=== PATIENT | male | born 1960 ===

== ENCOUNTER 2016-08-22 08:00 | Day surgery (SDC) | payer OTHER ==
--- NOTE | 2016-08-21 12:53 | PCM.HPANE ---
Patient Data Surgeon Admitting Provider: Attending Provider:Yosef Christie MD Primary Care Physician:Fany Garcia Other Provider:Juliet Pizarro Anesthesia Reason for Visit Colon Cancer Screening Ht/WT & BMI Body Mass Index Allergies Coded Allergies: No Known Allergies (Unverified , 08/21/16) Past Anesthesia History Anesthesia History: Denies:: Abnormal Airway, Anesthesia Reactions, Difficult Intubation, Fam Anesthesia Reaction, Fam Malignant Hypertherm, Malignant Hyperthermia Medications Discontinued Reported Medications Hydrocortisone Acetate (Anusol-Hc)25 Mg Supp.rect50 Mg RC BID 08/21/16 History History of ENT Problems?: No HEENT History: Denies:: Abnormal Airway Cataracts Difficult Intubation Dysphagia Glaucoma Hearing Problem Sinus Problem TMJ Denture Type: None Teeth Condition: Within Normal Limits Hx of Heart Problems?: No Cardiovascular History: Denies:: AICD Abdominal Aortic Aneurism Atrial Fibrillation Cardiac Surgery Chest Pain Congestive Heart Failure Coronary Artery Disease Edema Heart Murmur Hypertension Irregular Heartbeat Pacemaker Peripheral Vascular Rheumatic Fever Thrombophlebitis Valvular Heart Disease Hx of Respiratory Problem?: No Respiratory History: Denies:: Asthma COPD Chest Surgery Cough Dyspnea Emphysema Hemoptysis Oxygen Administration Pneumonia Pulmonary Embolism Tuberculosis Use of C-PAP Machine Use of Inhalers / NEBS Hx Neurologic Problems?: No Neurological History: Denies:: Alzheimer's Disease CVA Dementia Dizziness Headaches Multiple Sclerosis Parkinson's Disease Peripheral Neuropathy Seizures TIA Hx of GI Problems?: No Gastrointestinal History: Denies:: Cirrhosis Diverticulitis Gall Bladder Disease Gastroesphageal Reflux Gastrointestinal Bleeding Heartburn Hepatitis Hiatal Hernia Liver Disease Rectal Bleeding Hx of Problems?: No HX of Peritoneal Dialysis: No Male Hx: Denies:: Prostate Problems Scrotal Mass Testicular Surgery Skin History: Denies:: History Skin Disorders? Pressure Ulcers Hx Musculoskeletal Problems?: No Musculoskeletal History: Denies:: Back Injury Degenerative Joint Fibromyalgia Joint Replacement Musculoskeletal Trauma Myasthenia Gravis Osteoarthritis Rheumatoid Arthritis Systemic Lupus Hx of Psycho/Social Problems?: No Psycho Social History: Denies:: Anxiety Bipolar Disorder Hx Depression Suicide Attempt Hx Surgeries?: No Hx Any Other Health Problems?: No Other History: Denies:: Cancer Endocrine Disease Hospitalization Thyroid Disease History Blood Transfusions: Denies:: Accept Blood Products? Blood Transfuse Reaction Blood Transfusions Hx Diabetes: No Hx Alcohol Use: No Stop/Bang Risk Assessment Category Category 1A: Patient has history of documented sleep apnea, and HAS NOT received any narcotic, sedative or anesthesia administration during this stay. Category 1B: Patient has history of documented sleep apnea, and HAS received any narcotic , sedative or anesthesia administration during this stay Category 2: Patient has SUSPECTED Obstructive Sleep Apnea, and HAS received any narcotic , sedative or anesthesia administration during this stay. Category 3: Patient has SUSPECTED Obstructive Sleep Apnea and HAS NOT received narcotic, sedative or anesthesia administration during this stay. Category 4: Outpatient in Procedural Areas with known sleep apnea or who screen positive for High Risk via the STOP/BANG questionnaire. Exam Exam General Appearance: Alert, Oriented X3, Cooperative, No Acute Distress HEENT/AIRWAY: MP 2 Lungs: Clear to Auscultation Heart: Exam Unremarkable Plan Impression Patient chart reviewed, patient interviewed and anesthestic plan with risks, benefits, and alternatives discussed, and informed consent obtained. ASA Physical Status: ASA2 Mod Systemic Disease Anesthetic Plan: GA Bene/Risks/Altern/Consents: Yes HP Complete Prior to Induction: Yes Jose Carey MD Aug 21, 2016 12:53
[~2016-08-22] VITALS: Ht 172.7 cm; Wt 79.4 kg
[~2016-08-22 08:00] MED LIST: HYDR25SU31 RC; Lactated Ringer's 1,000 ML IV ONE
[2016-08-22] MEDS ORDERED: fentaNYL-PF 50 mCg/mL 2 mL Inj ONE (08:01)
[2016-08-22 08:17] VITALS: BP 136/95; PULSE 59; RESP 16; O2SAT 97
[2016-08-22] MEDS ORDERED: Ondansetron 2 mg/mL 2 mL Inj IVPUSH PRN (08:40)
[2016-08-22] MEDS ORDERED: Lactated Ringer's 1,000 ML IV SCH (08:40)
[2016-08-22] MEDS ORDERED: MetoCLOpramide 5 mg/mL 2 mL Inj IVPUSH PRN (08:40)
[2016-08-22 08:54] VITALS: BP 92/62; PULSE 55; RESP 16; O2SAT 94
--- NOTE | 2016-08-22 09:01 | ENDO ---
[address] [address] ENDOSCOPY PROCEDURE PATIENT: SHANTI SÁNCHEZ : 1960 MR#: [id number] ADMIT: 08/22/2016 JOB ID: [id number] DATE OF SERVICE: 08/22/2016 OPERATION: Colonoscopy. PREOPERATIVE DIAGNOSIS(ES): Colorectal cancer. POSTOPERATIVE DIAGNOSIS(ES): Mild sigmoid diverticulosis. ANESTHESIA: Monitored anesthesia care. COMPLICATIONS: None. BLOOD LOSS: Minimal. DESCRIPTION OF PROCEDURE: After risks and benefits had been explain to the patient, informed consent was obtained. After anesthesia administered, colonoscope was inserted from the rectum to the cecum. Mucosa was carefully examined. Prep of the patient was excellent. After the procedure done, the scope was withdrawn and procedure terminated. FINDINGS: Upon inspection of the anus no masses, hemorrhoids, ulcers or fissures were seen throughout the entire examination. There was mild sigmoid diverticulosis. No masses or polyps were seen. Retroflexion was normal. IMPRESSION: Mild sigmoid diverticulosis. RECOMMENDATION: 1. High fiber diet. 2. Repeat colonoscopy in 10 years for colorectal cancer screening.
--- NOTE | 2016-08-22 09:03 | PCM.ANEP1 ---
Post Anesthesia PACU Phase 1 Assessment Vital Signs Vital Signs Date Time Temp Pulse Resp B/P Pulse Ox O2 Delivery O2 Flow Rate FiO2 08/22/16 08:54 55 16 92/62 94 Room Air 08/22/16 08:17 59 16 136/95 97 Room Air Anesthetic Administered: GA Level of Alertness: Awake, talking BHARDWAJ's with Equal Strength: Yes Pain: No Nausea or Vomiting: No CV Function & Hydration Stable: Yes Airway Device: Oxygen Delivery: Room Air Lungs: Normal Air Movement PACU Phase 2 Assessment Complications: No Follow up Care: No Patient Instructions Provided: N/A Jose Carey MD Aug 22, 2016 09:03
[2016-08-22 09:04] VITALS: BP 89/65; PULSE 51; RESP 16; O2SAT 93
[2016-08-22 09:14] VITALS: BP 112/78; PULSE 60; RESP 16; O2SAT 94
== END 2016-08-22 23:59 | disposition home or self-care (01) ==
LOC: END 08:00
PROVIDERS: ATTEND Internal Medicine Gastroenterology
DX: Z12.11 Encounter for screening for malignant neoplasm of colon (principal); K57.30 Diverticulosis of large intestine without perforation or abscess without bleeding; K21.9 Gastro-esophageal reflux disease without esophagitis
CPT/HCPCS: G0121; J2250; J3010; J7120